=== PATIENT | female | born 1970 | race Caucasian/White ===

== ENCOUNTER 2020-06-10 08:15 | Observation (INO) | payer OTHER, SELFPAY ==
[2020-06-10] VITALS (10 sets, daily range): BP systolic 128–165; BP diastolic 63–97; PULSE 79–115; RESP 16–20; TEMP 37.2–39.3; O2SAT 96–100; BMI 30.4
--- NOTE | ~2020-06-10 | CT_ITS ---
EXAMINATION: CTA chest PE protocol EXAM DATE: 06/10/2020 09:57 INDICATION: Shortness of breath, fever. Broken ankles. TECHNIQUE: Spiral CTA of the chest (pulmonary arteries) was performed with 100 cc Omnipaque 350 intr avenous contrast injection. Images were acquired during the pulmonary arterial phase. Coronal maxi mum intensity projection 3D-reconstructions were created by the technologist on dedicated workstation . Axial, coronal and sagittal reformatted images were reviewed. The dose-length product (DLP) for t his examination was 436.00 mGy-cm. The exposure was tailored according to patient size (auto mA exp osure control), and iterative reconstruction (ASIR) was used as additional dose reduction technique. There is no prior study for comparison. FINDINGS: Bilateral patchy peripheral predominant groundglass opacities Appearance is typical of ear ly stage COVID 19-induced acute lung injury. Less likely acute possibilities include influenza, pulm onary edema or hemorrhage. Some chronic processes that can have this appearance include cryptogenic o rganizing pneumonia, desquamative interstitial pneumonia, nonspecific interstitial pneumonia, drug to xicity, connective tissue disease. Please clinically correlate and test as appropriate. No pulmonary emboli. No thoracic aortic dissection. The lungs are clear. There are no pleural or p ericardial effusions. Tracheobronchial tree is patent. There is no mediastinal, hilar or axillary lymphadenopathy. There is no pneumothorax. Heart normal in size. No evidence of coronary arter ial calcification. Hepatic steatosis. There is thoracic spondylosis without osteoblastic or osteoly tic lesions identified. IMPRESSION: 1. Patchy bilateral airspace disease suspicious for COVID-19 pneumonia. 2. No pulmonary emboli. I discussed this case with Suzanne Angulo MD at 06/10/2020 10:11 CDT. Reviewed, dictated and finalized at location A.
--- NOTE | 2020-06-10 08:35 | ECG_ITS ---
Measurements Intervals [place] Rate: 98 P: 71 MT: 149 QRS: 44 QRSD: 82 T: 68 QT: 338 QTc: 433 Interpretive Statements SINUS RHYTHM LOW QRS VOLTAGE IN PRECORDIAL LEADS BORDERLINE T WAVE ABNORMALITY- ANTERIOR LEADS BASELINE ARTIFACT- I, II, III, AVR, AVL, AVF, V3-V6 BORDERLINE ECG Electronically Signed On 06-10-2020 10:11:39 CDT by Radames Page D.O.
--- NOTE | 2020-06-10 08:41 | ED.URI ---
HPI - URI/Sore Throat General Chief Complaint: Upper Respiratory Infection Stated Complaint: Fever, SOB Time Seen by Provider: 06/10/20 08:19 Source: patient Mode of arrival: ambulatory Limitations: no limitations History of Present Illness HPI Narrative: This patient is a 50 year old female who presents for evaluation of sob and fever. Patient states she has been having sob and fever for the past couple of days. Her fever has been as high as 102 F. She has had nasal drainage and congestion for 1 week. She has mild nonproductive cough. She reports midsternal , nonradiating chest heaviness that is constant, and she feels like she can not get a complete breath. 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 Patient is also noted to have suffered a left ankle fracture 1 month ago. Her ankle has been immobilized in a cast and now a walking boot. She states she has been keep her leg elevated. Related Data Home Medications Medication Instructions Recorded Confirmed duloxetine 60 mg PO BID 06/10/20 06/10/20 furosemide 40 mg PO PRN PRN 06/10/20 06/10/20 hydrochlorothiazide 25 mg PO DAILY 06/10/20 06/10/20 meloxicam 15 mg PO DAILY 06/10/20 06/10/20 metformin 500 mg PO BID 06/10/20 06/10/20 metoprolol tartrate 50 mg PO BID 06/10/20 06/10/20 zolpidem 10 mg PO PRN PRN 06/10/20 06/10/20 Allergies Allergy/AdvReac Type Severity Reaction Status Date / Time Sulfa (Sulfonamide Allergy Unknown Unknown Verified 06/10/20 12:28 Antibiotics) terconazole Allergy Unknown Skin Verified 06/10/20 12:28 Reaction Review of Systems Review of Systems: All systems reviewed & are unremarkable except as noted in HPI and below Constitutional: Constitutional: Reports fatigue and Reports fever(s) ENT: Reports nasal congestion and Reports nasal discharge Cardiovascular: Cardiovascular: Reports chest pain and Denies radiating jaw, neck or arm pain Respiratory: Respiratory: Reports cough and Reports dyspnea Gastrointestinal: Gastrointestinal: Denies abdominal pain, Reports nausea and Denies vomiting Musculoskeletal: Musculoskeletal: Reports myalgias Neurologic: Reports headache(s) [facility] Past Medical History Medical History (Updated 06/10/20 @ 18:02 by Suzanne Angulo MD) Ulcerative colitis Surgical History Surgical History (Updated 06/10/20 @ 08:42 by Suzanne Angulo MD) H/O ileostomy Family History Family History (Updated 06/10/20 @ 12:16 by Joss Fu RN) Mother Hypertension Grandparent Diabetes mellitus Family history of malignant neoplasm of breast, Onset Age: 70 Father Family history of cardiovascular disease Acute myocardial infarction Esophageal adenocarcinoma Other Family history of malignant neoplasm of esophagus No family history of malignant neoplasm Social History Social History Smoking status: Never smoker Alcohol intake: current Drinks per week: 1 Substance use: never Gender identity (if verbalized by the patient): Female Spiritual care concerns: No Exam Narrative: Exam Narrative: GENERAL: , well-nourished, and in no acute distress. HEAD: Normocephalic, atraumatic EYES: PERRLA and EOMI, conjunctiva clear without discharge EARS: TM's clear bilaterally without erythema or dullness NOSE: Nares clear, no rhinorrhea or epistaxis THROAT:Mucous membranes moist, Oropharynx normal without erythema, exudate, peritonsillar swelling or fluctuance NECK: Supple, without lymphadenopathy or mass RESPIRATORY: No respiratory distress, Airway patent, Respirations non-labored, Clear to auscultation without rales, rhonchi or wheeze ABDOMEN: Soft, nontender, nondistended, normal active bowel sounds. No masses. No rebound or guarding, No organomegaly. SKIN: Warm, dry, normal color without rash NEURO: Alert and oriented x3. CN 2-12 grossly intact. No focal deficits. PSYCH: Normal mood and affect. Cardi
[2020-06-10] MEDS: SODIUM CHLORIDE 0.9% IV 1,000 ML 999 ML IV CONT (08:44)
[2020-06-10 09:03] LABS: Add Urine Microscopic? YES; Appearance Urine Clear (Clear); Bacteria Urine Trace /hpf; Bilirubin Urine Negative (Negative); Color Urine Yellow (Yellow); Glucose Urine UA Negative (Negative); Ketones Urine Negative (Negative); Leukocyte Esterase Ur 1+ LEU/UL (Negative); Mucus Urine Rare /lpf; Nitrate Urine Negative (Negative); Protein Urine 2+ mg/dL (Negative); Specific Grav Ur 1.027 (1.001-1.035); Squamous Epithelial Cell Urine Many /hpf (Few); Urobilinogen Urine Negative mg/dL (<2.0)
[2020-06-10 09:04] LABS: Basophils Percent Auto 0.4 % (0.2-1.2); Eosinophils Percent Auto 0.2 % (0-4.4); Hematocrit 38.9 % (37.0-47.0); Hemoglobin 12.6 g/dL (12.0-15.0); Immature Granulocyte Absolute 0.06 K/mm3 (0.00-0.031); Immature Granulocyte Percent A 0.7 % (0-0.5); Immature Platelet Fraction Pct 12.1 % (0.9-11.2); Lymphocytes Absolute Auto 1.08 K/mm3 (0.9-3.2); Lymphocytes Percent Auto 12.9 % (18.3-44.2); Mean Corpuscular HGB Conc 32.4 g/dl (32-36); Mean Corpuscular Hemoglobin 27.8 pg (26-34); Mean Corpuscular Volume 85.7 fl (80-100); Mean Platelet Volume 11.7 fl (7.4-10.4); Monocytes Absolute Auto 0.6 K/mm3 (0.1-0.6); Monocytes Percent Auto 7.5 % (2.6-8.5); Neutrophils Absolute Auto 6.6 K/mm3 (1.3-6.7); Neutrophils Percent Auto 78.3 % (45.5-73.1); Platelet Count Result 87 k/mm3 (150-375); Red Blood Count 4.54 M/mm3 (4.2-5.4); Red Cell Distribution Width 14.7 % (11.5-14.5); White Blood Count 8.4 K/mm3 (4.5-10.0)
[2020-06-10 09:08] LABS: INR 1.1; Prothrombin Time 13.4 Seconds (11.1-14.7)
[2020-06-10 09:09] LABS: Partial Thromboplastin Time 29.4 SECONDS (22.3-36.8)
[2020-06-10 09:11] LABS: D Dimer 0.29 ug/mL (<0.48)
[2020-06-10 09:12] LABS: Lactic Acid Reflex 4.2 mmol/L (0.7-2.1)
[2020-06-10 09:12] LABS: Blood Urine Negative (Negative)
[2020-06-10 09:13] LABS: Alanine Aminotransferase 34 U/L (4-35); Albumin Level 3.7 g/dL (3.5-5.1); Alkaline Phosphatase 97 U/L (38-126); Anion Gap 12 mmol/L (8-16); Aspartate Amino Transferase 41 U/L (14-36); Bilirubin,Total 0.1 mg/dL (0.2-1.3); Blood Urea Nitrogen 15 mg/dL (7-17); CRP 5.7 mg/dL (<1.0); Calcium 8.5 mg/dL (8.4-10.2); Carbon Dioxide 18 mmol/L (22-30); Chloride 104 mmol/L (98-107); Estimated CRCL calculation 69 ml/min; Estimated Glomerular Filt Rate > 60; Glucose 181 mg/dL (65-105); Lactate Dehydrogenase 454 U/L (313-618); Potassium 3.8 mmol/L (3.4-5.0); Sodium 134 mmol/L (137-145)
[2020-06-10 09:21] LABS: Troponin I < 0.012 ng/mL (0.000-0.034)
[2020-06-10] MEDS: SODIUM CHLORIDE 0.9% IV 2,400 ML/1,000 ML BAG 999 ML IV CONT ×2 (09:45→10:24)
--- NOTE | 2020-06-10 11:45 | ADMGEN ---
This patient, Sylvia Ugalde, was admitted to [facility] Surg Room 326-01. Patient/family oriented to hospital policies and general routines including ID bracelet, bed and alarms, visiting hours, pain management, procedures, bathroom and other care routines, personal items, smoking policy, room service/diet, and visiting hours. Valuables list has been completed. Information on how to activate the Rapid Response Team has been discussed. Patient/Family are encouraged to report perceived risks to care and to ask questions if they do not understand what they are told or what they should do.
[2020-06-10 11:57] LABS: Reflex Lactic Acid Yes or No Add Lactic
[2020-06-10] MEDS: SODIUM CHLORIDE 0.9% IV 1,000 ML 125 ML IV CONT (15:39)
[2020-06-10 18:32] LABS: SARS-CoV-2 RNA PCR Positive
--- NOTE | 2020-06-10 22:30 | PM.IMHP ---
H&P: HPI History of Present Illness Date/Time: 06/10/20 22:30 Chief complaint: Body aches and fever. Narrative: Sylvia Ugalde is a very pleasant 50-year-old female with hypertension, pre diabetes, and ulcerative colitis status post total colectomy with ileostomy who presented to the emergency department earlier today via private vehicle from home for evaluation of body aches and fever. Last Monday she developed what she thought was a sinus infection with congestion, rhinorrhea, occasional epistaxis, and low-grade fever. Unfortunately her symptoms have continued to get worse and her fevers are now spiking, with a T-max of 102?. She also endorses body aches, profound fatigue, shortness of breath, cough occasionally productive of green phlegm, nausea, anosmia, and dysgeusia. 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 Despite having no oxygen requirement, she was admitted to the hospital with concerning labs to include moderate thrombocytopenia and a lactic acid level of 4.2. At the time my evaluation, her fever has broken and she feels a bit better. She denies headache, neck ache, otalgia, odynophagia, chest pain, pleuritic pain, vomiting, diarrhea (no change in output from her ileostomy) or dysuria. Review of Systems Review of Systems: Narrative: Twelve systems were reviewed with pertinent positives and negatives as per HPI. she broke her ankle about 4 months ago, and recently had her cast taken off and is now in a walking boot. She does monitor her glucose at home, with fasting levels typically around 120. No blurry vision, polydipsia, or polyuria. Except as documented, all other systems were reviewed and are negative. [facility] Past Medical History Medical History (Updated 06/11/20 @ 02:34 by Nadege Catalan PA-C) Essential hypertension Pre-diabetes Hemoglobin A1c was 6.3% in March 2019. Ulcerative colitis Surgical History Surgical History (Updated 06/11/20 @ 02:31 by Nadege Catalan PA-C) History of 2 sections History of colectomy With ileostomy, secondary to severe ulcerative colitis. History of hysterectomy History of ileostomy History of tonsillectomy Family History Family History Mother Hypertension Grandparent Diabetes mellitus Family history of malignant neoplasm of breast, Onset Age: 70 Father Family history of cardiovascular disease Acute myocardial infarction Esophageal adenocarcinoma Other Family history of malignant neoplasm of esophagus No family history of malignant neoplasm Social History Social History (Updated 06/11/20 @ 02:31 by Nadege Catalan PA-C) Social History: The patient lives in [place], [place] with her . They have 2 grown children. 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 She denies alcohol, tobacco, and illicit substance use. She designates her as her surrogate decision maker and she wishes to be a full code. Spiritual care concerns: No Meds Home Medications and Allergies Home Medications Medication Instructions Recorded Confirmed Type duloxetine 60 mg PO BID 06/10/20 06/10/20 History furosemide 40 mg PO PRN PRN 06/10/20 06/10/20 History hydrochlorothiazide 25 mg PO DAILY 06/10/20 06/10/20 History hydrocodone-acetaminophen 1 tablet PO Q6H PRN 06/10/20 06/10/20 History meloxicam 15 mg PO DAILY 06/10/20 06/10/20 History metformin 500 mg PO BID 06/10/20 06/10/20 History metoprolol tartrate 50 mg PO BID 06/10/20 06/10/20 History zolpidem 10 mg PO PRN PRN 06/10/20 06/10/20 History Allergies Allergy/AdvReac Type Severity Reaction Status Date / Time Sulfa (Sulfonamide Allergy Unknown Unknown Verified 06/10/20 12:28 Antibiotics) terconazole Allergy Unknown Skin Verified
[2020-06-11] VITALS (7 sets, daily range): BP systolic 117–161; BP diastolic 70–78; PULSE 61–93; RESP 18–67; TEMP 36.8–37.9; O2SAT 97–100
[2020-06-11] MEDS: ASCORBIC ACID 500 MG TABLET PO (05:53)
[2020-06-11 06:06] LABS: Glucose Point of Care 93 (65-105)
[2020-06-11 07:06] LABS: Basophils Percent Auto 0.3 % (0.2-1.2); Eosinophils Percent Auto 0.2 % (0-4.4); Hematocrit 38.4 % (37.0-47.0); Hemoglobin 12.4 g/dL (12.0-15.0); Immature Granulocyte Absolute 0.05 K/mm3 (0.00-0.031); Immature Granulocyte Percent A 0.8 % (0-0.5); Immature Platelet Fraction Pct 9.9 % (0.9-11.2); Lymphocytes Absolute Auto 1.76 K/mm3 (0.9-3.2); Lymphocytes Percent Auto 27.9 % (18.3-44.2); Mean Corpuscular HGB Conc 32.3 g/dl (32-36); Mean Corpuscular Hemoglobin 27.7 pg (26-34); Mean Corpuscular Volume 85.9 fl (80-100); Mean Platelet Volume 11.9 fl (7.4-10.4); Monocytes Absolute Auto 0.4 K/mm3 (0.1-0.6); Neutrophils Percent Auto 63.8 % (45.5-73.1); Platelet Count Result 90 k/mm3 (150-375); Red Blood Count 4.47 M/mm3 (4.2-5.4); Red Cell Distribution Width 14.8 % (11.5-14.5); White Blood Count 6.3 K/mm3 (4.5-10.0)
[2020-06-11 07:13] LABS: Lactic Acid 1.5 mmol/L (0.7-2.1)
[2020-06-11 07:22] LABS: Alanine Aminotransferase 16 U/L (4-35); Albumin Level 3.5 g/dL (3.5-5.1); Alkaline Phosphatase 94 U/L (38-126); Anion Gap 7 mmol/L (8-16); Aspartate Amino Transferase 26 U/L (14-36); Bilirubin,Total 0.2 mg/dL (0.2-1.3); Blood Urea Nitrogen 7 mg/dL (7-17); Calcium 7.7 mg/dL (8.4-10.2); Carbon Dioxide 23 mmol/L (22-30); Chloride 106 mmol/L (98-107); Estimated CRCL calculation 87 ml/min; Estimated Glomerular Filt Rate > 60; Glucose 119 mg/dL (65-105); Potassium 3.4 mmol/L (3.4-5.0); Sodium 136 mmol/L (137-145)
[2020-06-11 07:26] LABS: Hemoglobin A1C 6.5 % (<5.7)
[2020-06-11 08:21] LABS: Glucose Point of Care 135 (65-105)
[2020-06-11] MEDS: POTASSIUM CHLORIDE 20 MEQ TABLET PO (09:27)
[2020-06-11] MEDS: ZINC SULFATE 220 MG CAPSULE PO (09:28)
[2020-06-11] MEDS: DULoxetine HCL 60 MG CAPSULE.DR PO (09:28)
[2020-06-11] MEDS: guaiFENesin 12 HR 600 MG TABCR PO (09:28)
[2020-06-11] MEDS: hydroCHLOROthiazide 25 MG TABLET PO (09:28)
[2020-06-11] MEDS: METOPROLOL TARTRATE 50 MG TAB PO (09:28)
[2020-06-11] MEDS: CHOLECALCIFEROL 200 UNITS TABLET PO (09:28)
[2020-06-11 12:16] LABS: Glucose Point of Care 101 (65-105)
--- NOTE | 2020-06-11 16:22 | PM.DS ---
DS: Admitting Diagnosis Admitting Diagnosis Admitting Diagnosis: Body aches and fever. DS: Discharge Diagnosis Discharge Diagnosis (1) Pneumonia due to COVID-19 virus: Code(s): U07.1 - COVID-19; J12.89 - Other viral pneumonia Status: Acute Assessment and Plan: Date of Service 06/11/20 Ms. Ugalde is a very pleasant 50yo F with history of hypertension, pre-diabetes, ulcerative colitis s/p total colectomy with ileostomy who presented to the ED for evaluation of body aches and fever. Her symptoms began 06/03/20 as mild nasal congestion and rhinorrhea. Her symptoms progressed to fever, body aches, fatigue, nausea, loss of sense of taste and smell. 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 She tested positive for COVID 06/10/20. Imaging showed patchy bilateral pneumonia. She was saturating well on room air, O2 sats 97-100% on room air. She was treated supportively with Tylenol for fevers and albuterol MDI. The following morning she was feeling still weak and fatigued but a bit better. At this time, she did not meet criteria for receiving remdesivir or dexamethasone. She was hemodynamically stable for discharge 06/11/20. We discussed purchasing a pulse oximeter and she was educated on quarantine guidelines, worrisome signs/symptoms to monitor for and return to ED if needed. (2) Thrombocytopenia: Code(s): D69.6 - Thrombocytopenia, unspecified Status: Acute Assessment and Plan: Likely due to infection. No evidence of pulmonary embolism on chest CTA, or swelling of the legs to suggest DVT. (3) Sepsis: Code(s): A41.9 - Sepsis, unspecified organism Status: Acute Assessment and Plan: Supported by fever, tachycardia, and elevated lactic acid level in the setting of COVID-19 pneumonia. Lactic acid level normalized with IV fluid rehydration. IV fluids were then stopped to avoid overload. (4) Essential hypertension: Code(s): I10 - Essential (primary) hypertension Status: Acute Assessment and Plan: Blood pressures were reviewed and they are reasonable in the 130s to 140 systolic. Maintained on her home antihypertensives. (5) Pre-diabetes: Code(s): R73.03 - Prediabetes Status: Acute Assessment and Plan: Metformin was held since she received IV contrast for CTA. A1c 6.5. (6) Ulcerative colitis: Code(s): K51.90 - Ulcerative colitis, unspecified, without complications Status: Acute Assessment and Plan: Status post total colectomy with ileostomy. DS: Summary Time Spent with Patient Time attestation: Total time spent providing and/or coordinating discharge services: 35 minutes Exam Narrative: Exam Narrative: General: Female resting supine in bed in no acute distress. HEENT: Normocephalic, EOMI, oral mucosa moist. Neck: Supple. No lymphadenopathy. Respiratory: Respirations are even and nonlabored. Scattered bibasilar rales. Tolerating room air. Cardiovascular: Regular rate and rhythm. Gastrointestinal: Abdomen is soft, nontender, and nondistended with positive bowel sounds. Ileostomy contains small amount of stool. Extremities: Radial and pedal pulses intact. No edema. Neurological: Alert. No gross focal deficits to casual conversation. Speech is clear. Psychiatric: Pleasant and cooperative with normal mood and affect. Judgment and insight intact. DS: Data Data Completed and Pending Labs on day of discharge: Last Vital Signs Temp 99.1 F 06/11/20 16:00 Pulse 73 06/11/20 16:00 Resp 18 06/11/20 16:00 BP 117/70 06/11/20 16:00 Pulse Ox 97 06/11/20 16:00
== END 2020-06-11 17:00 | disposition home or self-care (01) ==
LOC: ANHED 11:03 → ANH3MEDSUR 11:25
PROVIDERS: Physician Assistant; Admitting Provider Family Medicine; Emergency Provider General Practice; PCP Family Medicine; Visit Provider Family Medicine
DX: U07.1 COVID-19 (principal); J12.89 Other viral pneumonia; A41.9 Sepsis, unspecified organism; D69.6 Thrombocytopenia, unspecified; I10 Essential (primary) hypertension; R73.03 Prediabetes; K51.90 Ulcerative colitis, unspecified, without complications; Z93.2 Ileostomy status; Z90.49 Acquired absence of other specified parts of digestive tract
CPT/HCPCS: 36415; 71275; 80053; 81001; 82728; 83036; 83605; 83615; 84484; 85025; 85055; 85380; 85610; 85730; 86140; 87040; 87086; 87635; 93005; 96360; 96361; 96365; 96366; 96375; 96376; 99291; A9270; C9803; G0378; J0131; J0456; J0696; J7030; Q9967; U0003